=== PATIENT | female | born 1960 | race Caucasian/White ===

== ENCOUNTER 2018-02-05 10:36 | Emergency (ER) | payer OTHER ==
[~2018-02-05] VITALS: Ht 162.6 cm; Wt 87.1 kg
--- NOTE | 2018-02-05 11:33 | ED NECK/BACK PAIN COMPLAINT ---
History of Present Illness General Chief Complaint: Low Back Pain/Injury Stated Complaint: LBP RADIATING DOWN LFT LEG Source: patient, family Exam Limitations: no limitations Vital Signs & Intake/Output Vital Signs & Intake/Output Vital Signs Date Time Temp Pulse Resp B/P B/P Pulse O2 O2 Flow FiO2 Mean Ox Delivery Rate 02/05 1616 62 16 184/96 99 Room Air 02/05 1513 60 18 188/94 98 Room Air 02/05 1405 98.6 54 18 196/100 02/05 1335 196/100 02/05 1300 98.6 54 18 198/102 98 02/05 1042 97.8 78 18 146/70 97 Room Air Allergies Coded Allergies: Penicillins (UNKNOWN 02/05/18) Uncoded Allergies: Allergy Other (04/30/17) NKA Med Allergies (04/30/17) PCN Reconcile Medications Amlodipine Besylate 2.5 MG TABLET 1 TAB PO DAILY HYPERTENSION Methylprednisolone. (Medrol) 4 MG TAB.DS.PK 1 DP PO AD SCIATICA 6 on day 1 then reduce by one tablet daily until gone Naproxen 500 MG TABLET 1 TAB PO BID SCIATICA Triage Note: PT COMPLAINS OF L SIDE LOW BACK PAIN THAT SHOTTS DOWN HER L LEG FOR THE PAST 3 DAYS AND NOW UNABLE TO GET OUT OF BED WITH OUT HELP Triage Nurses Notes Reviewed? yes HPI: 57F PMH GERD presenting with 5 days of left lower back pain radiating down left leg. A week ago was painting a room and moving stuff around and felt fine, but the day after woke up with the pain. The pain has been constant, worse with any kind of movement. She denies saddle paresthesia or incontinence. She is having trouble rolling over and standing up due to the pain. She has a history of back problems but never this severe. She denies any numbness, but has weakness in the leg. Past History Travel History Traveled to [place] past 21 day No Medical History Any Pertinent Medical History? 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 No Review of Systems Review of Systems Constitutional: Reports: no symptoms. Eyes: Reports: no symptoms. Ears, Nose, Throat, Mouth: Reports: no symptoms. Respiratory: Reports: no symptoms. Cardiovascular: Reports: no symptoms. Gastrointestinal/Abdominal: Reports: no symptoms. Musculoskeletal: Reports: no symptoms. Skin: Reports: no symptoms. Neurological/Psychological: Reports: no symptoms. All Other Systems: Reviewed and Negative Physical Exam Physical Exam General Appearance: well developed/nourished, mild distress Head: atraumatic, normal appearance Eyes: Bilateral: normal appearance. Ears, Nose, Throat, Mouth: hearing grossly normal, moist mucous membrane Neck: normal inspection, supple, full range of motion Respiratory: normal breath sounds, no respiratory distress Cardiovascular: regular rate/rhythm Gastrointestinal: soft, non-tender Back: normal inspection, left lumbar paravertebral tenderness, no vertebral tenderness, ROM limited by pain Extremities: non-tender, normal range of motion, sensory and strength intact in b/l LE Straight Leg Raising: Left: Pain at ____ degrees (10). Neurologic/Psych: no motor/sensory deficits, awake, alert, oriented x 3 Skin: intact, normal color, warm/dry Core Measures CVA/TIA Diagnosis: No Progress Differential Diagnosis: cauda equina syn, herniated disc, myofascial strain, sciatica, spinal cord inj, T/L spine injury Plan of Care: Orders Procedure Date/time Status Heart Healthy Diet /15 D Active Pain improved with medication. No evidence of cauda equina syndrome, most likely sciatic pain. Will discharge with outpatient physical therapy. Patient became hypertensive after trying to walk 198/110. Her BP was steadily improving. Departure Departure Disposition: HOME OR SELF CARE Condition: Stable Clinical Impression Primary Impression: Sciatic neuropathy Qualifiers: Laterality: left Qualified Code: G57.02 - Lesion of sciatic nerve, left lower limb Secondary Impressions: Hypertension Qualifiers: Hypertension type: essential hypertension Qualified Code: I10 - Essential (primary) hypertension Sciatic pain Qualifiers: Laterality: left Qualified Code: M54.32 - Sciatica, left side Referrals: Marzena NAVA,Marzena Tucker MD,Sandra (PCP/Family) Additional Instructions: Take the Naproxen (Aleve) with food. You can use warm compresses for discomfort. Sitting or lying for prolonged periods may worsen pain and delay healing. Stay active as tolerated by pain. See your PCP for a referral to physical therapy. If you notice tingling or numbness of your inner thighs or groin, or incontinence or inability to urinate, return to ER immediately, as this is a sign of spinal cord compression. Return to ER if any new or worsening symptoms. Departure Forms: Customer Survey General Discharge Information Prescriptions: Current Visit Scripts Methylprednisolone. (Medrol) 1 DP PO AD #1 DP 6 on day 1 then reduce by one tablet daily until gone Naproxen 1 TAB PO BID #28 TAB Amlodipine Besylate 1 TAB PO DAILY #30 TAB
[2018-02-05] MEDS ORDERED: MEDROL4 M2 PO (12:31)
[2018-02-05] MEDS ORDERED: NAPROXEN500 M2 PO (12:31)
[2018-02-05] MEDS ORDERED: AMLODIPINE BES2.5 M1 PO (14:13)
[2018-02-05 16:16] VITALS: BP 184/96
== END 2018-02-05 16:44 ==
LOC: ERH 10:36
DX: G57.02 Lesion of sciatic nerve, left lower limb (principal); I10 Essential (primary) hypertension; M54.42 Lumbago with sciatica, left side
CPT/HCPCS: 96372; J1100; J1885